=== PATIENT | male | born 1960 | race Two or more races ===

== ENCOUNTER 2016-10-20 10:54 | Emergency (ER) | payer SELFPAY ==
[2016-10-20] VITALS (12 sets, daily range): BP systolic 0–156; BP diastolic 0–98
[~2016-10-20] VITALS: Ht 182.9 cm; Wt 81.6 kg
[2016-10-20] MEDS ORDERED: Haloperidol 5mg/ml Inj IM ONE (11:15)
[2016-10-20] MEDS ORDERED: DiphenhydrAMINE 50mg/ml Inj IM ONE (11:15)
[2016-10-20] MEDS ORDERED: LORazepam Inj 2mg/ml 1ml IM ONE (11:15)
[2016-10-20 13:09] LABS: APPEARANCE,URINE SLIGHTLY CLOUDY; KETONES,URINE 1+ (NEGATIVE); LEUKOCYTE ESTERASE ,URINE 1+ (NEGATIVE); NITRITE,URINE POSITIVE (NEGATIVE); PH,URINE 5 (4.5-8.0); PROTEIN,URINE 2+ (NEGATIVE); UROBILINOGEN,URINE 4 MG/DL (0.0-1.0)
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
[2016-10-20 13:25] LABS: BACTERIA,URINE FEW /HPF; ICTOTEST NEGATIVE; MUCUS,URINE FEW /LPF (NONE/OCC); SQUAMOUS EPITHELIAL CELL,UR FEW /LPF (NONE/OCC)
--- NOTE | 2016-10-20 14:03 | Diagnostic Imaging Report ---
Indication: Chest Pain Comparison: None A single view chest radiograph was obtained. Findings: No infiltrate is identified. Lung volumes are low. Heart size is normal. Bones are slightly osteopenic. Aorta is ectatic. Impression: Limited evaluation due to expiratory lung volumes. No acute disease appreciated
[2016-10-20 14:20] LABS: EOSINOPHILS % (AUTO) 0.1 % (0.0-3.0); MEAN CORPUSCULAR HEMOGLOBIN 31.2 PG (27.0-31.0); MEAN CORPUSCULAR HGB CONC 33.5 G/DL (32.0-36.0); MEAN CORPUSCULAR VOLUME 93 FL (80-99); MEAN PLATELET VOLUME 5.5 FL (6.5-10.1); MONOCYTES % (AUTO) 10.6 % (1.0-10.0); NEUTROPHILS % (AUTO) 76.4 % (45.0-75.0); PLATELET COUNT 353 K/UL (150-450); RED BLOOD COUNT 4.08 M/UL (4.70-6.10); RED CELL DISTRIBUTION WIDTH 11.3 % (11.6-14.8); WHITE BLOOD COUNT 13.9 K/UL (4.8-10.8)
[2016-10-20 14:45] LABS: ACETAMINOPHEN < 10 ug/mL (10-30); ALANINE AMINOTRANSFERASE 102 U/L (3-41); ALBUMIN/GLOBULIN RATIO 1.3 (1.0-2.7); ALCOHOL < 10 mg/dL; ANION GAP 18 (5-15); ASPARTATE AMINO TRANSFERASE 127 U/L (5-40); CALCIUM 9.1 mg/dL (8.6-10.2); CARBON DIOXIDE 23 mEQ/L (20-30); CHLORIDE 94 mEQ/L (98-107); GLOMERULAR FILTRATION RATE > 60 mL/min (>60); HEMOLYSIS 10; POTASSIUM 3.5 mEQ/L (3.4-4.9); SODIUM 135 mEQ/L (135-145); TOTAL PROTEIN 6.9 g/dL (6.6-8.7); TROPONIN I < 0.30 ng/mL (<=0.30)
[2016-10-20 14:46] LABS: AMMONIA 20 umol/L (16-60)
[2016-10-20 14:57] LABS: BILIRUBIN,DIRECT 0.4 mg/dL (0.1-0.3)
[2016-10-20] MEDS ORDERED: LORazepam Inj 2mg/ml 1ml IV ONE (16:30)
[2016-10-21 01:00] VITALS: BP 136/68
[2016-10-21 04:25] VITALS: BP 122/82
[2016-10-21 05:00] VITALS: BP 122/82
--- NOTE | 2016-10-21 08:41 | Diagnostic Imaging Report ---
Indications: Altered level of consciousness Technique: Spiral acquisitions obtained through the brain. Angled axial and coronal 5 x 5 mm slices were reconstructed. Total dose length product 1381 mGycm. CTDI vol(s) 70 mGy. Dose reduction achieved using automated exposure control Comparison: None Findings: There is some image degradation due to motion artifact. There is mild age-related enlargement of ventricles and extra axial CSF spaces. No acute hemorrhage or edema. No mass effect or midline shift. Intact calvarium. Visualized orbits and sinuses are unremarkable. Impression: Mild age-related changes. Negative for acute intracranial bleed or mass effect This agrees with the preliminary interpretation provided overnight by Dr. Gomes The CT scanner at [facility] is accredited by the [employer] and the scans are performed using protocols designed to limit radiation exposure to as low as reasonably achievable to attain images of sufficient resolution adequate for diagnostic evaluation.
--- NOTE | 2016-10-21 16:24 | Cardiology Report ---
APPROVED REPORT EKG Measurement Heart [id number] Normal sinus rhythm Normal ECG
== END 2016-10-21 05:00 | disposition home or self-care (01) ==
LOC: EDBD 10:54 → EMR 11:41
DX: R41.82 Altered mental status, unspecified (principal); B86 Scabies; F19.10 Other psychoactive substance abuse, uncomplicated
CPT/HCPCS: 36415; 70450; 71010; 80053; 80300; 81003; 82140; 82248; 82550; 84484; 85025; 93005; 96372; 96374; 96375; 99284; G0480; J1200; J1630; 80329